=== PATIENT | male | born 1975 | race Caucasian/White ===

== ENCOUNTER 2018-10-16 15:43 | Inpatient (IN) | payer OTHER ==
[2018-10-16 20:58] VITALS: BMI 28.2
--- NOTE | 2018-10-16 22:32 | HP ---
COWS - Scale Resting Pulse: 4= [place] > 121 Sweatin=Flushed/Facial Moisture Restless Observation: 1= Difficult to Sit Still Pupil Size: 0= Normal to Room Light Bone or Joint Aches: 2= Severe Diffuse Aches Runny Nose/ Eye Tearin= Runny Nose/Eyes GI Upset > 30mins: 1= Stomach Cramp Tremor Observation: 2= Slight Tremor Visible Yawning Observation: 1= 1-2x During Session Anxiety or Irritability: 2=Irritable/Anxious Goose Flesh Skin: 3=Piloerection COWS Score: 20 CIWA Score Nausea/Vomitin Muscle Tremors: 3 Anxiety: 3 Agitation: 3 Paroxysmal Sweats: 2 Orientation: 1-Uncertain about Date Tacttile Disturbances: 0-None Auditory Disturbances: 0-None Visual Disturbances: 0-None Headache: 4-Moderately Severe CIWA-Ar Total Score: 19 - Admission Criteria OASAS Guidelines: Admission for Medically Managed Detox: Requires at least one of the followin. CIWA greater than 12 2. Seizures within the past 24 hours 3. Delirium tremens within the past 24 hours 4. Hallucinations within the past 24 hours 5. Acute intervention needed for co occurring medical disorder 6. Acute intervention needed for co occurring psychiatric disorder 7. Severe withdrawal that cannot be handled at a lower level of care (continued vomiting, continued diarrhea, abnormal vital signs) requiring intravenous medication and/or fluids 8. Admission ROS [facility] Chief Complaint: Alcohol, benzo. and heroin withdrawal symptoms Allergies/Adverse Reactions: Allergies Allergy/AdvReac Type Severity Reaction Status Date / Time No Known Allergies Allergy Verified 10/16/18 22:31 History of Present Illness: 43 years old male with a history of benzo., heroin and alcohol dependence is seeking admission to detox. Patient has been in previous detox and reports 8 years of sobriety. He has medical history of lyme disease, seizures, GERD and depression. He denies suicidal ideation at this time. Exam Limitations: No Limitations - Ebola screening Have you traveled outside of the country in the last 21 days: No (N) Have you had contact with anyone from an Ebola affected area: No Do you have a fever: No - Review of Systems Constitutional: Chills, Loss of Appetite, Malaise, Changes in sleep, Weakness EENT: reports: Sinus Pressure Respiratory: reports: No Symptoms reported Cardiac: reports: No Symptoms Reported GI: reports: Poor Appetite, Poor Fluid Intake, Abdominal cramping : reports: No Symptoms Reported Musculoskeletal: reports: Back Pain Integumentary: reports: Dryness, Flushing Neuro: reports: Tremors Endocrine: reports: No Symptoms Reported Hematology: reports: No Symptoms Reported Psychiatric: reports: Anxious, Depressed Other Systems: Reviewed and Negative Patient History - Patient Medical History Hx Anemia: No Hx Asthma: No Hx Chronic Obstructive Pulmonary Disease (COPD): No Hx Cancer: No Hx Cardiac Disorders: No Hx Congestive Heart Failure: No Hx Hypertension: No Hx Hypercholesterolemia: No Hx Pacemaker: No HX Cerebrovascular Accident: No Hx Seizures: Yes (08/21/14 WITNESS BY HIS FRIENDS) Hx Dementia: No Hx Diabetes: No Hx Gastrointestinal Disorders: Yes (PT HAS SEVERE THRUSH.) Hx Liver Disease: No Hx Genitourinary Disorders: No Hx Sexually Transmitted Disorders: No Hx Renal Disease (ESRD): No Hx Thyroid Disease: No Hx Human Immunodeficiency Virus (HIV): No Hx Hepatitis C: No Hx Depression: Yes (WELLBUTRIN) Hx Suicide Attempt: No Hx Schizophrenia: No - Patient Surgical History Past Surgical History: Yes Hx Neurologic Surgery: No Hx Cataract Extraction: No Hx Cardiac Surgery: No Hx Lung Surgery: No Hx Breast Surgery: No Hx Breast Biopsy: No Hx Abdominal Surgery: No Hx Appendectomy: Yes Hx Genitourinary Surgery: No Hx Section: No Hx Orthopedic Surgery: No Hx Hysterectomy: No Other Surgical History: FRONTAL SINUS SX Anesthesia Reaction: No - PPD History Previous Implant?: Yes Documented Results: Positive w/proof Implanted On Prior [facility] Admission?: Yes Date: 08/26/14 PPD to be Administered?: Yes - Reproductive History Patient is a Female of Child Bearing Age (11 -55 yrs old): No (male) - Smoking Cessation Smoking history: Current every day smoker Have you smoked in the past 12 months: Yes Aproximately how many cigarettes per day: 5 Hx Chewing Tobacco Use: No Initiated information on smoking cessation: Yes 'Breaking Loose' booklet given: 10/16/18 - Substance & Tx. History Hx Alcohol Use: Yes Hx Substance Use: Yes Substance Use Type: Alcohol, Opiates Hx Substance Use Treatment: Yes ([facility]) - Substances abused Heroin Substance route: Injection Frequency: Daily Amount used: 3 TO 6 BAGS/DAY Age of first use: 36 Date of last use: 10/15/18 Alprazolam (Xanax) Substance route: Oral Frequency: Daily Amount used: 6 OF 2 MG Age of first use: 19 Date of last use: 10/15/18 Other Other (specify): ST.METHADONE Substance route: Oral Frequency: 1-3 times last 30 days Amount used: 6 OF 10 MG Age of first use: 41 Date of last use: 10/14/18 Alcohol Frequency: Daily Amount used: BEER 6-12 oz, [place] 2 BOTTLES Age of first use: 41 Date of last use: 10/16/18 Family Disease History - Family Disease History Family Disease History: Heart Disease: Father (ALCOHOLIC), Other: Father, Mother (raynauds and lupus) Admission Physical Exam S - Vital Signs Vital Signs: Vital Signs - 24 hr 10/16/18 20:47 Temperature 97.9 F Pulse Rate 123 H Respiratory 19 Rate Blood Pressure 156/100 - Physical General Appearance: Yes: Moderate Distress, Severe Distress, Tremorous, Irritable, Sweating, Anxious HEENTM: Yes: Normal ENT Inspection, Normal Voice, KYM Respiratory: Yes: Lungs Clear, Normal Breath Sounds, No Respiratory Distress Neck: Yes: Supple Breast: Yes: Breast Exam Deferred Cardiology: Yes: Tachycardia Genitourinary: Yes: Within Normal Limits Back: Yes: Normal Inspection Musculoskeletal: Yes: Within Normal Limits Extremities: Yes: Tremors 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, Alert, Normal Mood/Affect Integumentary: Yes: Warm Lymphatic: Yes: Within Normal Limits - Diagnostic (1) Opioid dependence with withdrawal Current Visit: Yes Status: Chronic (2) Alcohol dependence with uncomplicated withdrawal Current Visit: Yes Status: Chronic (3) Benzodiazepine dependence Current Visit: Yes Status: Chronic (4) Geographical tongue Current Visit: No Status: Chronic (5) Nicotine dependence Current Visit: Yes Status: Acute (6) MDD (major depressive disorder), recurrent episode Current Visit: Yes Status: Chronic Qualifiers: Major depression episode severity: unspecified Qualified Code(s): F33.9 - Major depressive disorder, recurrent, unspecified (7) Lyme disease Current Visit: No Status: Chronic (8) Seizures Current Visit: Yes Status: Chronic (9) GERD (gastroesophageal reflux disease) Current Visit: Yes Status: Chronic Qualifiers: Esophagitis presence: without esophagitis Qualified Code(s): K21.9 - Gastro -esophageal reflux disease without esophagitis (10) Depression Current Visit: Yes Status: Chronic Qualifiers: Depression Type: major depressive disorder Cleared for Admission [facility] - Detox or Rehab [facility] Level of Care: Medically Managed Detox Regimen/Protocol: Methadone/Valium Breathalyzer - Breathalyzer Breathalyzer: 0 Urine Drug Screen - Test Device Lot number: [id number] Expiration date: 09/19/19 - Control Is test valid?: Yes - Results Drug screen NEGATIVE: No Urine drug screen results: MET-Methamphetamine, BZO-Benzodiazepines Inpatient Rehab Admission - Rehab Decision to Admit Inpatient rehab admission?: No
[2018-10-16] MEDS ORDERED: MAG HYDROX/AL HYDROX/SIMETH 30 ML UNIT-DOSE CUP PO PRN (22:53)
[2018-10-16] MEDS ORDERED: MENTHOL/PHENOL 1 EACH UD MM PRN (22:53)
[2018-10-16] MEDS ORDERED: NICOTINE POLACRILEX 2 MG GUM BUC PRN (22:53)
[2018-10-16] MEDS ORDERED: BISMUTH SUBSALICYLATE 524 MG/30 ML UD PO PRN (22:53)
[2018-10-16] MEDS ORDERED: IBUPROFEN 400 MG TABLET (FP) PO PRN (22:53)
[2018-10-16] MEDS ORDERED: ACETAMINOPHEN 325 MG TABLET (FP) PO PRN ×2 (22:53)
[2018-10-16] MEDS ORDERED: MAGNESIUM HYDROX 2400MG/30ML ORAL SUSPENSION 30 ML CUP PO PRN (22:53)
[2018-10-16] MEDS ORDERED: MAGNESIUM CITRATE 300 ML BOTTLE PO PRN (22:53)
[2018-10-16] MEDS ORDERED: METHADONE HCL 10 MG TABLET (FOR DETOX USE ONLY) PO ONE (23:00)
[2018-10-16] MEDS: diazePAM 5 MG TABLET PO SCH (23:51)
[2018-10-16] MEDS: cloNIDine HCL 0.1 MG TABLET PO PRN (23:51)
[2018-10-17] MEDS: METHOCARBAMOL 500 MG TABLET PO PRN ×3 (00:41→20:26)
[2018-10-17] MEDS: hydrOXYzine PAMOATE 25 MG CAPSULE (FP) PO PRN ×2 (00:41→13:33)
[2018-10-17] MEDS: MELATONIN 5 MG TABLETS PO PRN ×2 (00:41→22:42)
[2018-10-17] MEDS: diazePAM 5 MG TABLET PO PRN ×4 (02:10→20:25)
[2018-10-17] MEDS: diazePAM 5 MG TABLET PO SCH ×3 (06:04→22:42)
[2018-10-17] MEDS ORDERED: METHADONE HCL 10 MG TABLET (FOR DETOX USE ONLY) PO ONE (10:00)
[2018-10-17 10:07] LABS: HEMATOCRIT 38.2 % (35.4-49); HEMOGLOBIN 12.8 GM/dL (11.7-16.9); MCHC 33.5 g/dl (32.0-35.9); MEAN CELL VOLUME 83.5 fl (80-96); MEAN PLT VOLUME 8.9 fl (7.5-11.1); PLATELET COUNT 256 K/MM3 (134-434); RBC 4.58 M/mm3 (4.00-5.60); RDW 14.4 % (11.9-15.9)
[2018-10-17] MEDS: PRENATAL VITAMINS W/ FOLIC ACID TABLET (FP) PO SCH (10:14)
[2018-10-17] MEDS: NICOTINE 14 MG/24 HOURS TOPICAL PATCH TD SCH (10:15)
[2018-10-17 10:32] LABS: ALBUMIN 3.1 g/dl (3.4-5.0); BILIRUBIN,TOTAL 0.3 mg/dL (0.2-1); CALCIUM 8.9 mg/dL (8.5-10.1); TOT PROT 6.6 g/dl (6.4-8.2)
--- NOTE | 2018-10-17 11:54 | PN ---
[facility] CIWA - CIWA Score Nausea/Vomitin-Mild Nausea/No Vomiting Muscle Tremors: 4-Moderate,w/Arms Extend Anxiety: 2 Agitation: 3 Paroxysmal Sweats: 1-Minimal Palms Moist Orientation: 2-Disoriented Date<2 days Tacttile Disturbances: 1-Very Mild Itch/Numbness Auditory Disturbances: 0-None Visual Disturbances: 0-None Headache: 1-Very Mild CIWA-Ar Total Score: 15 [facility] COWS - Scale Resting Pulse: 1= [place] 81-100 Sweatin= Chills/Flushing Restless Observation: 0= Sits Still Pupil Size: 0= Normal to Room Light Bone or Joint Aches: 1= Mild Discomfort Runny Nose/ Eye Tearin= Nasal Congestion GI Upset > 30mins: 2= Nausea/Diarrhea Tremor Observation of Outstretched Hands: 2= Slight Tremor Visible Yawning Observation: 1= 1-2x During Session Anxiety or Irritability: 2=Irritable/Anxious Goose Flesh Skin: 3=Piloerection COWS Score: 14 [facility] Progress Note (SOAP) Subjective: doing well with valium and methadone detox regimen "I can sleep now" resting on bed low energy tolerate food and fluid well Objective: 10/17/18 11:54 Vital Signs Temperature 98.2 F 10/17/18 09:10 Pulse Rate 93 H 10/17/18 09:10 Respiratory Rate 20 10/17/18 09:10 Blood Pressure 126/75 10/17/18 09:10 O2 Sat by Pulse Oximetry (%) Laboratory Last Values WBC 5.0 K/mm3 (4.0-10.0) 10/17/18 07:00 RBC 4.58 M/mm3 (4.00-5.60) 10/17/18 07:00 Hgb 12.8 GM/dL (11.7-16.9) 10/17/18 07:00 Hct 38.2 % (35.4-49) 10/17/18 07:00 MCV 83.5 fl (80-96) 10/17/18 07:00 MCH 28.0 pg (25.7-33.7) 10/17/18 07:00 MCHC 33.5 g/dl (32.0-35.9) 10/17/18 07:00 RDW 14.4 % (11.9-15.9) D 10/17/18 07:00 Plt Count 256 K/MM3 (134-434) 10/17/18 07:00 MPV 8.9 fl (7.5-11.1) 10/17/18 07:00 Sodium 139 mmol/L (136-145) 10/17/18 07:00 Potassium 4.0 mmol/L (3.5-5.1) 10/17/18 07:00 Chloride 102 mmol/L (98-107) 10/17/18 07:00 Carbon Dioxide 30 mmol/L (21-32) 10/17/18 07:00 Anion Gap 6 MMOL/L (8-16) L 10/17/18 07:00 BUN 15 mg/dL (7-18) 10/17/18 07:00 Creatinine 1.0 mg/dL (0.55-1.3) 10/17/18 07:00 Est GFR (CKD-EPI)AfAm 107.12 10/17/18 07:00 Est GFR (CKD-EPI)NonAf 92.42 10/17/18 07:00 Random Glucose 94 mg/dL (74-106) 10/17/18 07:00 Calcium 8.9 mg/dL (8.5-10.1) 10/17/18 07:00 Total Bilirubin 0.3 mg/dL (0.2-1) 10/17/18 07:00 AST 13 U/L (15-37) L 10/17/18 07:00 ALT 26 U/L (13-61) 10/17/18 07:00 Alkaline Phosphatase 69 U/L (45-117) 10/17/18 07:00 Total Protein 6.6 g/dl (6.4-8.2) 10/17/18 07:00 Albumin 3.1 g/dl (3.4-5.0) L 10/17/18 07:00 lab noted Assessment: 10/17/18 11:55 withdrawal sx Plan: continue detox
[2018-10-17 14:39] LABS: RPR REACTIVE 1:1 (NONREACTIVE)
--- NOTE | 2018-10-17 17:19 | EKG ---
Test Reason : Blood Pressure : / mmHG Vent. Rate : 094 BPM Atrial Rate : 094 BPM P-R Int : 152 ms QRS Dur : 084 ms QT Int : 370 ms P-R-T Axes : 056 -22 032 degrees QTc Int : 462 ms NORMAL SINUS RHYTHM NORMAL ECG WHEN COMPARED WITH ECG OF 21-AUG-2014 22:39, NO SIGNIFICANT CHANGE WAS FOUND Confirmed by CHET DELGADO MD ([id number]) on 10/17/2018 5:18:55 PM Referred By: ANTHONY GOODSON Confirmed By:CHET DELGADO MD
[2018-10-17] MEDS: THIAMINE HCL 100 MG TABLET (FP) PO SCH (22:42)
[2018-10-18] MEDS: diazePAM 5 MG TABLET PO PRN ×3 (03:17→20:22)
[2018-10-18] MEDS: cloNIDine HCL 0.1 MG TABLET PO PRN ×2 (05:48→23:36)
[2018-10-18] MEDS ORDERED: METHADONE HCL 10 MG TABLET (FOR DETOX USE ONLY) PO ONE ×3 (10:00)
[2018-10-18] MEDS ORDERED: METHADONE HCL 5 MG TABLET (FOR DETOX USE ONLY) PO ONE (10:00)
[2018-10-18] MEDS: NICOTINE 14 MG/24 HOURS TOPICAL PATCH TD SCH (10:21)
[2018-10-18] MEDS: diazePAM 5 MG TABLET PO SCH ×2 (10:21→22:16)
[2018-10-18] MEDS: PRENATAL VITAMINS W/ FOLIC ACID TABLET (FP) PO SCH (10:21)
--- NOTE | 2018-10-18 13:05 | CONSULT ---
[facility] Psychiatric Consult - Data Date of interview: 10/18/18 Admission source: [facility] Identifying data: Patient is a 43 year old single male, without children, unemployed, homeless, and is supported by [employer] assistance. This is one of multiple admissions for patient. Patient admitted to for alcohol, opioid, and benzodiazepine dependence. Substance Abuse History: Smoking Cessation. Smoking history: Current every day smoker. Have you smoked in the past 12 months: Yes. Aproximately how many cigarettes per day: 5. Hx Chewing Tobacco Use: No. Initiated information on smoking cessation: Yes. 'Breaking Loose' booklet given: 10/16/18. - Substance & Tx. History. Hx Alcohol Use: Yes. Hx Substance Use: Yes. Substance Use Type : Alcohol, Opiates. Hx Substance Use Treatment: Yes ([facility]). - Substances abused. Heroin. Substance route: Injection. Frequency: Daily. Amount used : 3 TO 6 BAGS/DAY. Age of first use: 36. Date of last use: 10/15/18. Alprazolam (Xanax). Substance route: Oral. Frequency: Daily. Amount used: 6 OF 2 MG. Age of first use: 19. Date of last use: 10/15/18. Other. Other ( specify): ST.METHADONE. Substance route: Oral. Frequency: 1-3 times last 30 days. Amount used: 6 OF 10 MG. Age of first use: 41. Date of last use: . Alcohol. Frequency: Daily. Amount used: BEER 6-12 oz, [place] 2 BOTTLES. Age of first use: 41. Date of last use: 10/16/18 Medical History: Thrush, Seizures (witness by friends), Frontal sinus surgery Psychiatric History: Patient denies h/o psychiatric hospitalization and suicide attempt. Mr. Paris reports only receiving psychiatric care while in detox/ rehab settings. He reports past trials of gabapentin, seroquel and wellbutrin although reports medication noncompliance and is not under psychiatric care. At present, patient reports ongoing anxiety and difficulty sleeping. Physical/Sexual Abuse/Trauma History: denies. Mental Status Exam - Mental Status Exam Alert and Oriented to: Time, Place, Person Cognitive Function: Good Patient Appearance: Well Groomed Mood: Withdrawn Affect: Mood Congruent Patient Behavior: Cooperative Voice Loudness: Moderately Soft/Quiet Thought Process: Goal Oriented Thought Disorder: Not Present Hallucinations: Denies Suicidal Ideation: Denies Homicidal Ideation: Denies Insight/Judgement: Poor Sleep: Poorly Appetite: Fair Muscle strength/Tone: Normal Gait/Station: Normal Psychiatric Findings - Problem List (Mobile 1, 2,3) (1) Alcohol dependence with uncomplicated withdrawal Current Visit: Yes Status: Acute (2) Benzodiazepine dependence Current Visit: Yes Status: Chronic (3) Opioid dependence with withdrawal Current Visit: Yes Status: Acute (4) Substance induced mood disorder Current Visit: Yes Status: Acute (5) Substance-induced sleep disorder Current Visit: Yes Status: Acute - Initial Treatment Plan Initial Treatment Plan: Psychoeducation provided. Detoxification in progress. Will order Gabapentin 300mg BID + Seroquel 50mg HS. Benefits and side effects discussed. Verbal consent given.
--- NOTE | 2018-10-18 13:43 | PN ---
[facility] CIWA - CIWA Score Nausea/Vomitin-Mild Nausea/No Vomiting Muscle Tremors: 3 Anxiety: 2 Agitation: 2 Paroxysmal Sweats: 1-Minimal Palms Moist Orientation: 1-Uncertain about Date Tacttile Disturbances: 0-None Auditory Disturbances: 0-None Visual Disturbances: 0-None Headache: 1-Very Mild CIWA-Ar Total Score: 11 [facility] Progress Note (SOAP) Subjective: body ache tremor low energy restlessness muscle cramping willing to discuss aftercare with staff consider medication assisted maintenance treatment program Objective: 10/18/18 13:45 Vital Signs Temperature 97.0 F L 10/18/18 13:39 Pulse Rate 88 10/18/18 13:39 Respiratory Rate 20 10/18/18 13:39 Blood Pressure 114/62 10/18/18 13:39 O2 Sat by Pulse Oximetry (%) Laboratory Last Values WBC 5.0 K/mm3 (4.0-10.0) 10/17/18 07:00 RBC 4.58 M/mm3 (4.00-5.60) 10/17/18 07:00 Hgb 12.8 GM/dL (11.7-16.9) 10/17/18 07:00 Hct 38.2 % (35.4-49) 10/17/18 07:00 MCV 83.5 fl (80-96) 10/17/18 07:00 MCH 28.0 pg (25.7-33.7) 10/17/18 07:00 MCHC 33.5 g/dl (32.0-35.9) 10/17/18 07:00 RDW 14.4 % (11.9-15.9) D 10/17/18 07:00 Plt Count 256 K/MM3 (134-434) 10/17/18 07:00 MPV 8.9 fl (7.5-11.1) 10/17/18 07:00 Sodium 139 mmol/L (136-145) 10/17/18 07:00 Potassium 4.0 mmol/L (3.5-5.1) 10/17/18 07:00 Chloride 102 mmol/L (98-107) 10/17/18 07:00 Carbon Dioxide 30 mmol/L (21-32) 10/17/18 07:00 Anion Gap 6 MMOL/L (8-16) L 10/17/18 07:00 BUN 15 mg/dL (7-18) 10/17/18 07:00 Creatinine 1.0 mg/dL (0.55-1.3) 10/17/18 07:00 Est GFR (CKD-EPI)AfAm 107.12 10/17/18 07:00 Est GFR (CKD-EPI)NonAf 92.42 10/17/18 07:00 Random Glucose 94 mg/dL (74-106) 10/17/18 07:00 Calcium 8.9 mg/dL (8.5-10.1) 10/17/18 07:00 Total Bilirubin 0.3 mg/dL (0.2-1) 10/17/18 07:00 AST 13 U/L (15-37) L 10/17/18 07:00 ALT 26 U/L (13-61) 10/17/18 07:00 Alkaline Phosphatase 69 U/L (45-117) 10/17/18 07:00 Total Protein 6.6 g/dl (6.4-8.2) 10/17/18 07:00 Albumin 3.1 g/dl (3.4-5.0) L 10/17/18 07:00 RPR Titer Reactive 1:1 (NONREACTIVE) H D 10/17/18 07:00 lab noted Assessment: 10/18/18 13:45 alcohol benzo and opiate withdrawal sx Plan: continue detox
[2018-10-18 15:34] LABS: TREPONEMA ANTIBODY REACTIVE (NONREACTIVE)
[2018-10-18] MEDS: METHOCARBAMOL 500 MG TABLET PO PRN (20:24)
[2018-10-18] MEDS ORDERED: QUEtiapine FUMARATE 50 MG TABLET PO ONE (22:00)
[2018-10-18] MEDS: GABAPENTIN 300 MG CAPSULE (FP) PO SCH (22:16)
[2018-10-18] MEDS: QUEtiapine FUMARATE 50 MG TABLET PO SCH (22:16)
[2018-10-18] MEDS: THIAMINE HCL 100 MG TABLET (FP) PO SCH (22:16)
[2018-10-18] MEDS: hydrOXYzine PAMOATE 25 MG CAPSULE (FP) PO PRN (23:36)
[2018-10-19] MEDS ORDERED: diazePAM 5 MG TABLET PO SCH (06:00)
[2018-10-19] MEDS ORDERED: METHADONE HCL 10 MG TABLET (FOR DETOX USE ONLY) PO ONE ×2 (10:00)
[2018-10-19] MEDS: GABAPENTIN 300 MG CAPSULE (FP) PO SCH ×2 (10:17→22:15)
[2018-10-19] MEDS: PRENATAL VITAMINS W/ FOLIC ACID TABLET (FP) PO SCH (10:17)
[2018-10-19] MEDS: NICOTINE 14 MG/24 HOURS TOPICAL PATCH TD SCH (10:17)
[2018-10-19] MEDS: diazePAM 5 MG TABLET PO PRN ×3 (10:17→19:21)
--- NOTE | 2018-10-19 14:33 | PN ---
S CIWA - CIWA Score Nausea/Vomitin Muscle Tremors: 2 Anxiety: 2 Agitation: 1-Slight > Activity Paroxysmal Sweats: No Perspiration Orientation: 0-Oriented Tacttile Disturbances: 1-Very Mild Itch/Numbness Auditory Disturbances: 0-None Visual Disturbances: 0-None Headache: 1-Very Mild CIWA-Ar Total Score: 9 [facility] COWS - Scale Resting Pulse: 0= [place] 80 or Below Sweatin= Chills/Flushing Restless Observation: 1= Difficult to Sit Still Pupil Size: 1= Pupils >than Normal Bone or Joint Aches: 1= Mild Discomfort Runny Nose/ Eye Tearin= Nasal Congestion GI Upset > 30mins: 1= Stomach Cramp Tremor Observation of Outstretched Hands: 1= Tremor [place], Not Seen Yawning Observation: 0= None Anxiety or Irritability: 1=Feels Anxious/Irritable Goose Flesh Skin: 0=Smooth Skin COWS Score: 8 [facility] Progress Note (SOAP) Subjective: alert,interrupted sleep,anxious,pain in the body Objective: 10/19/18 14:32 Vital Signs Temperature 98.6 F 10/19/18 13:00 Pulse Rate 96 H 10/19/18 13:00 Respiratory Rate 20 10/19/18 13:00 Blood Pressure 136/92 10/19/18 13:00 O2 Sat by Pulse Oximetry (%) Assessment: 10/19/18 14:32 withdrawal symptom Plan: continue detox,discharge in am
[2018-10-19] MEDS: METHOCARBAMOL 500 MG TABLET PO PRN (19:21)
[2018-10-19] MEDS: THIAMINE HCL 100 MG TABLET (FP) PO SCH (22:15)
[2018-10-19] MEDS: hydrOXYzine PAMOATE 25 MG CAPSULE (FP) PO PRN (22:15)
[2018-10-19] MEDS: QUEtiapine FUMARATE 50 MG TABLET PO SCH (22:15)
[2018-10-19] MEDS: MELATONIN 5 MG TABLETS PO PRN (22:15)
[2018-10-20] MEDS ORDERED: METHADONE HCL 5 MG TABLET (FOR DETOX USE ONLY) PO ONE (06:00)
[2018-10-20] MEDS: GABAPENTIN 300 MG CAPSULE (FP) PO SCH ×2 (09:48→22:22)
[2018-10-20] MEDS: hydrOXYzine PAMOATE 25 MG CAPSULE (FP) PO PRN (09:48)
[2018-10-20] MEDS: PRENATAL VITAMINS W/ FOLIC ACID TABLET (FP) PO SCH (09:48)
[2018-10-20] MEDS: NICOTINE 14 MG/24 HOURS TOPICAL PATCH TD SCH (09:49)
[2018-10-20] MEDS ORDERED: METHADONE HCL 10 MG TABLET (FOR DETOX USE ONLY) PO ONE (10:00)
[2018-10-20] MEDS: METHOCARBAMOL 500 MG TABLET PO PRN (11:52)
[2018-10-20] MEDS ORDERED: cloNIDine HCL 0.1 MG TABLET PO ONE (17:05)
--- NOTE | 2018-10-20 17:08 | PN ---
[facility] CIWA - CIWA Score Nausea/Vomitin-No Nausea/No Vomiting Muscle Tremors: None Anxiety: 4-Mod. Anxious/Guarded Agitation: 2 Paroxysmal Sweats: No Perspiration Orientation: 0-Oriented Tacttile Disturbances: 1-Very Mild Itch/Numbness Auditory Disturbances: 0-None Visual Disturbances: 1-Very Mild Sensitivity Headache: 0-None Present CIWA-Ar Total Score: 8 S COWS - Scale Resting Pulse: 1= [place] 81-100 Sweatin= Chills/Flushing Restless Observation: 1= Difficult to Sit Still Pupil Size: 0= Normal to Room Light Bone or Joint Aches: 2= Severe Diffuse Aches Runny Nose/ Eye Tearin= None GI Upset > 30mins: 0= None Tremor Observation of Outstretched Hands: 0= None Yawning Observation: 1= 1-2x During Session Anxiety or Irritability: 2=Irritable/Anxious Goose Flesh Skin: 0=Smooth Skin COWS Score: 8 S Progress Note (SOAP) Subjective: Anxious, Interrupted sleep, Body Aches. Objective: PATIENT A & O X 3, OBSERVED AMBULATING ON UNIT UNASSISTED. IN NO ACUTE DISTRESS. 10/20/18 17:07 Vital Signs Temperature 97.6 F 10/20/18 13:51 Pulse Rate 94 H 10/20/18 13:51 Respiratory Rate 20 10/20/18 13:51 Blood Pressure 142/94 10/20/18 13:51 O2 Sat by Pulse Oximetry (%) Laboratory Tests 10/17/18 10/17/18 10/17/18 07:00 07:00 07:00 WBC 5.0 RBC 4.58 Hgb 12.8 Hct 38.2 MCV 83.5 MCH 28.0 MCHC 33.5 RDW 14.4 D Plt Count 256 MPV 8.9 Sodium 139 Potassium 4.0 Chloride 102 Carbon Dioxide 30 Anion Gap 6 L BUN 15 Creatinine 1.0 Est GFR (CKD-EPI)AfAm 107.12 Est GFR (CKD-EPI)NonAf 92.42 Random Glucose 94 Calcium 8.9 Total Bilirubin 0.3 AST 13 L ALT 26 Alkaline Phosphatase 69 Total Protein 6.6 Albumin 3.1 L RPR Titer Reactive 1:1 H D T.pallidum Ab (MHA) Reactive LABS NOTED. RPR RESULTS: REACTIVE 1:1; MHATP: REACTIVE. PATIENT REPORTS THAT HE COMPLETED A FULL COURSE OF TREATMENT FOR SYPHILIS IN THE PAST. 10/20/18 17:26 Assessment: 10/20/18 17:07 WITHDRAWAL SYMPTOMS. REACTIVE RPR RESULT. 10/20/18 17:27 Plan: CONTINUE DETOX. CLONIDINE, 0.1 MG PO X 1 ORDERED FOR WITHDRAWAL SYMPTOMS. PATIENT SCHEDULED FOR D/C TOMORROW AM.
[2018-10-20] MEDS: QUEtiapine FUMARATE 50 MG TABLET PO SCH (22:22)
[2018-10-20] MEDS: THIAMINE HCL 100 MG TABLET (FP) PO SCH (22:22)
[2018-10-21] MEDS ORDERED: METHADONE HCL 5 MG TABLET (FOR DETOX USE ONLY) PO ONE (06:00)
[2018-10-21] MEDS: NICOTINE 14 MG/24 HOURS TOPICAL PATCH TD SCH (10:34)
[2018-10-21] MEDS: GABAPENTIN 300 MG CAPSULE (FP) PO SCH (10:34)
[2018-10-21] MEDS: PRENATAL VITAMINS W/ FOLIC ACID TABLET (FP) PO SCH (10:34)
--- NOTE | 2018-10-21 11:22 | PN ---
[facility] CIWA - CIWA Score Nausea/Vomitin-No Nausea/No Vomiting Muscle Tremors: 1-None Visible, but [place] Anxiety: 1-Mildly Anxious Agitation: 0-Normal Activity Paroxysmal Sweats: No Perspiration Orientation: 0-Oriented Tacttile Disturbances: 0-None Auditory Disturbances: 0-None Visual Disturbances: 0-None Headache: 0-None Present CIWA-Ar Total Score: 2 [facility] COWS - Scale Resting Pulse: 1= [place] 81-100 Sweatin= No chills or Flushing Restless Observation: 0= Sits Still Pupil Size: 0= Normal to Room Light Bone or Joint Aches: 0= None Runny Nose/ Eye Tearin= None GI Upset > 30mins: 0= None Tremor Observation of Outstretched Hands: 1= Tremor [place], Not Seen Yawning Observation: 0= None Anxiety or Irritability: 1=Feels Anxious/Irritable Goose Flesh Skin: 0=Smooth Skin COWS Score: 3 [facility] Progress Note (SOAP) Subjective: No complains offered Objective: 10/21/18 11:20 A & O x 3 Anxious about aftercare rehab Vital Signs Temperature 98 F 10/21/18 09:50 Pulse Rate 89 10/21/18 09:50 Respiratory Rate 16 10/21/18 09:50 Blood Pressure 131/86 10/21/18 09:50 O2 Sat by Pulse Oximetry (%) No acute distress noted Gait steady Declined narcan, states he has some Assessment: 10/21/18 11:22 detox completed Plan: For discharge
--- NOTE | 2018-10-21 11:26 | DS ---
[facility] Detox Discharge Summary Admission Date: 10/16/18 Discharge Date: 10/21/18 - History Additional Comments: pt for discharge today A & O x 3 and in no acute distress Denies any complaint, Denies home meds, declined narcan offered States he intends to do aftercare by doing maintenance methadone at the methadone program at [facility], [facility] or [facility]. - Physical Exam Results Vital Signs: Vital Signs Temperature 98 F 10/21/18 09:50 Pulse Rate 89 10/21/18 09:50 Respiratory Rate 16 10/21/18 09:50 Blood Pressure 131/86 10/21/18 09:50 O2 Sat by Pulse Oximetry (%) Pertinent Admission Physical Exam Findings: withdrawal sx - Treatment Hospital Course: Detox Protocol Followed, Detoxed Safely, Responded well, Discharged Condition Good Patient has Accepted a Rehab Referral to: see notes above - Medication Discharge Medications: Ambulatory Orders Quetiapine Fumarate [Seroquel -] 50 mg PO HS 08/24/14 Quetiapine Fumarate [Seroquel -] 50 mg PO HS 10/16/18 - AMA Did Patient Leave Against Medical Advice: No
[2018-10-21 14:11] VITALS: BP 127/82; PULSE 81; TEMP 98.7
== END 2018-10-21 14:53 | disposition home or self-care (01) | DRG 773 ==
LOC: YASAS 15:43 → Y3N 23:09
PROVIDERS: ADMIT Surgery; ATTEND Surgery
PROC: HZ2ZZZZ Detoxification Services for Substance Abuse Treatment (ICD-10-PCS; principal; 2018-10-16)
DX: F10.230 Alcohol dependence with withdrawal, uncomplicated (principal); F11.23 Opioid dependence with withdrawal; F13.230 Sedative, hypnotic or anxiolytic dependence with withdrawal, uncomplicated; F19.24 Other psychoactive substance dependence with psychoactive substance-induced mood disorder; F19.282 Other psychoactive substance dependence with psychoactive substance-induced sleep disorder; F32.9 Major depressive disorder, single episode, unspecified; B37.89 Other sites of candidiasis; Z86.69 Personal history of other diseases of the nervous system and sense organs
CPT/HCPCS: 36415; 80053; 85027; 86593; 86780; 93005; 93010; J0735

== ENCOUNTER 2019-07-22 20:40 | Inpatient (IN) | payer OTHER ==
--- NOTE | 2019-07-22 21:01 | BHS.RME ---
Substance Use & Tx History - Last Treatment Where was last treatment: Detox COWS - Scale Resting Pulse: 1= [place] 81-100 Sweatin=Flushed/Facial Moisture Restless Observation: 1= Difficult to Sit Still Pupil Size: 1= Pupils >than Normal Bone or Joint Aches: 4=Acute Joint/Muscle Pain Runny Nose/ Eye Tearin= Runny Nose/Eyes GI Upset > 30mins: 1= Stomach Cramp Tremor Observation: 4= Gross Tremor/Twitching Yawning Observation: 0= None Anxiety or Irritability: 2=Irritable/Anxious Goose Flesh Skin: 0=Smooth Skin COWS Score: 18 CIWA Nausea/Vomitin Muscle Tremors: 4-Moderate,w/Arms Extend Anxiety: 3 Agitation: 3 Paroxysmal Sweats: 2 Orientation: 0-Oriented Tacttile Disturbances: 0-None Auditory Disturbances: 1-Very Mild Visual Disturbances: 0-None Headache: 2-Mild CIWA-Ar Total Score: 17
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
[2019-07-22] MEDS ORDERED: MAG HYDROX/AL HYDROX/SIMETH 30 ML UNIT-DOSE CUP PO PRN (22:00)
[2019-07-22] MEDS ORDERED: BISMUTH SUBSALICYLATE 524 MG/30 ML UD PO PRN (22:00)
[2019-07-22] MEDS ORDERED: ONDANSETRON *ODT* 4 MG TABLET SL ONE (22:00)
[2019-07-22] MEDS ORDERED: ACETAMINOPHEN 325 MG TABLET (FP) PO PRN ×2 (22:00)
[2019-07-22] MEDS ORDERED: MAGNESIUM HYDROX 2400MG/30ML ORAL SUSPENSION 30 ML CUP PO PRN (22:00)
[2019-07-22] MEDS ORDERED: MENTHOL/PHENOL 1 EACH UD MM PRN (22:00)
[2019-07-22] MEDS ORDERED: MAGNESIUM CITRATE 300 ML BOTTLE PO PRN (22:00)
[2019-07-22] MEDS ORDERED: guaiFENesin 200 MG/10 ML 10 ML UNIT-DOSE CUPS PO PRN (22:00)
[2019-07-22] MEDS ORDERED: cloNIDine HCL 0.1 MG TABLET PO ONE (22:09)
[2019-07-22 22:30] VITALS: BMI 28.2
[2019-07-22] MEDS ORDERED: METHADONE HCL 5 MG TABLET (FOR DETOX USE ONLY) PO ONE (22:35)
[2019-07-22] MEDS: THIAMINE HCL 100 MG TABLET (FP) PO SCH (23:17)
[2019-07-22] MEDS: chlordiazePOXIDE HCL 25 MG CAPSULE PO SCH (23:17)
[2019-07-22] MEDS: MELATONIN 5 MG TABLETS PO SCH (23:17)
[2019-07-22] MEDS ORDERED: QUEtiapine FUMARATE 50 MG TABLET PO ONE (23:45)
[2019-07-23] MEDS: chlordiazePOXIDE HCL 25 MG CAPSULE PO PRN ×3 (01:48→20:32)
[2019-07-23] MEDS: chlordiazePOXIDE HCL 25 MG CAPSULE PO SCH ×4 (05:24→22:17)
[2019-07-23] MEDS: cloNIDine HCL 0.1 MG TABLET PO PRN ×2 (05:29→18:22)
[2019-07-23] MEDS: DOCUSATE SODIUM 100 MG CAPSULE (FP) PO SCH ×3 (05:47→22:16)
[2019-07-23] MEDS ORDERED: METHADONE HCL 5 MG TABLET (FOR DETOX USE ONLY) PO ONE (10:00)
[2019-07-23] MEDS: PRENATAL VITAMINS W/ FOLIC ACID TABLET (FP) PO SCH (10:15)
[2019-07-23] MEDS: IBUPROFEN 400 MG TABLET (FP) PO PRN ×2 (10:15→18:22)
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
[2019-07-23 10:24] LABS: HEMATOCRIT 35.7 % (35.4-49); HEMOGLOBIN 11.9 GM/dL (11.7-16.9); MCH 28.5 pg (25.7-33.7); MCHC 33.2 g/dl (32.0-35.9); MEAN CELL VOLUME 85.7 fl (80-96); MEAN PLT VOLUME 9.4 fl (7.5-11.1); PLATELET COUNT 220 K/MM3 (134-434); RBC 4.17 M/mm3 (4.00-5.60); RDW 14.7 % (11.9-15.9); WHITE BLOOD COUNT 4.4 K/mm3 (4.0-10.0)
[2019-07-23 10:31] LABS: BILIRUBIN,TOTAL 0.5 mg/dL (0.2-1); BLOOD UREA NITROGEN 13.1 mg/dL (7-18); CREATININE 1.2 mg/dL (0.55-1.3); POTASSIUM 4.1 mmol/L (3.5-5.1); TOT PROT 6.1 g/dl (6.4-8.2)
--- NOTE | 2019-07-23 10:35 | EKG ---
Test Reason : Blood Pressure : / mmHG Vent. Rate : 106 BPM Atrial Rate : 106 BPM P-R Int : 180 ms QRS Dur : 082 ms QT Int : 332 ms P-R-T Axes : 030 -17 002 degrees QTc Int : 441 ms SINUS TACHYCARDIA OTHERWISE NORMAL ECG WHEN COMPARED WITH ECG OF 16-OCT-2018 23:12, NO SIGNIFICANT CHANGE WAS FOUND Confirmed by Jhoan Felix MD ([id number]) on 07/23/2019 10:35:18 AM Referred By: Confirmed By:Jhoan Felix MD
[2019-07-23 13:05] LABS: RPR REACTIVE 1:1 (NONREACTIVE)
[2019-07-23 13:07] LABS: TREPONEMA ANTIBODY PREVIOUSLY REACTIVE (NONREACTIVE)
--- NOTE | 2019-07-23 15:18 | PN ---
S CIWA - CIWA Score Nausea/Vomitin-Mild Nausea/No Vomiting Muscle Tremors: 2 Anxiety: 4-Mod. Anxious/Guarded Agitation: 2 Paroxysmal Sweats: 2 Orientation: 0-Oriented Tacttile Disturbances: 0-None Auditory Disturbances: 0-None Visual Disturbances: 2-Mild Sensitivity Headache: 2-Mild CIWA-Ar Total Score: 15 BHS COWS - Scale Resting Pulse: 1= [place] 81-100 Sweatin= Chills/Flushing Restless Observation: 0= Sits Still Pupil Size: 1= Pupils >than Normal Bone or Joint Aches: 1= Mild Discomfort Runny Nose/ Eye Tearin= Nasal Congestion GI Upset > 30mins: 2= Nausea/Diarrhea Tremor Observation of Outstretched Hands: 2= Slight Tremor Visible Yawning Observation: 0= None Anxiety or Irritability: 2=Irritable/Anxious Goose Flesh Skin: 3=Piloerection COWS Score: 14 S Progress Note (SOAP) Subjective: 44 years old male admitted on 07/22/19 for benzo and opiate withdrawal sx management treating with librium and methadone detox regiments feeling tire poor appetite restlessness trouble sleep at night Objective: 07/23/19 15:22 Vital Signs Temperature 97.9 F 07/23/19 12:35 Pulse Rate 89 07/23/19 12:35 Respiratory Rate 18 07/23/19 12:35 Blood Pressure 126/81 07/23/19 12:35 O2 Sat by Pulse Oximetry (%) Laboratory Last Values WBC 4.4 K/mm3 (4.0-10.0) 07/23/19 07:30 RBC 4.17 M/mm3 (4.00-5.60) 07/23/19 07:30 Hgb 11.9 GM/dL (11.7-16.9) 07/23/19 07:30 Hct 35.7 % (35.4-49) 07/23/19 07:30 MCV 85.7 fl (80-96) 07/23/19 07:30 MCH 28.5 pg (25.7-33.7) 07/23/19 07:30 MCHC 33.2 g/dl (32.0-35.9) 07/23/19 07:30 RDW 14.7 % (11.9-15.9) 07/23/19 07:30 Plt Count 220 K/MM3 (134-434) 07/23/19 07:30 MPV 9.4 fl (7.5-11.1) 07/23/19 07:30 Sodium 136 mmol/L (136-145) 07/23/19 07:30 Potassium 4.1 mmol/L (3.5-5.1) 07/23/19 07:30 Chloride 101 mmol/L (98-107) 07/23/19 07:30 Carbon Dioxide 28 mmol/L (21-32) 07/23/19 07:30 Anion Gap 6 MMOL/L (8-16) L 07/23/19 07:30 BUN 13.1 mg/dL (7-18) 07/23/19 07:30 Creatinine 1.2 mg/dL (0.55-1.3) 07/23/19 07:30 Est GFR (CKD-EPI)AfAm 85.32 07/23/19 07:30 Est GFR (CKD-EPI)NonAf 73.62 07/23/19 07:30 Random Glucose 88 mg/dL (74-106) 07/23/19 07:30 Calcium 8.0 mg/dL (8.5-10.1) L 07/23/19 07:30 Total Bilirubin 0.5 mg/dL (0.2-1) 07/23/19 07:30 AST 18 U/L (15-37) 07/23/19 07:30 ALT 21 U/L (13-61) 07/23/19 07:30 Alkaline Phosphatase 75 U/L (45-117) 07/23/19 07:30 Total Protein 6.1 g/dl (6.4-8.2) L 07/23/19 07:30 Albumin 3.0 g/dl (3.4-5.0) L 07/23/19 07:30 RPR Titer Reactive 1:1 (NONREACTIVE) H 07/23/19 07:30 T.pallidum Ab (MHA) Previously reactive (NONREACTIVE) 07/23/19 07:30 lab noted Assessment: 07/23/19 15:23 benzo and opiate withdrawal Plan: librium and methadone regiments
[2019-07-23] MEDS: THIAMINE HCL 100 MG TABLET (FP) PO SCH (22:16)
[2019-07-23] MEDS: QUEtiapine FUMARATE 100 MG TABLET (FP) PO SCH (22:16)
[2019-07-23] MEDS: MELATONIN 5 MG TABLETS PO SCH (22:16)
[2019-07-24] MEDS: chlordiazePOXIDE HCL 25 MG CAPSULE PO PRN ×2 (00:53→19:08)
[2019-07-24] MEDS: DOCUSATE SODIUM 100 MG CAPSULE (FP) PO SCH ×3 (06:30→22:36)
[2019-07-24] MEDS: chlordiazePOXIDE HCL 25 MG CAPSULE PO SCH ×4 (06:30→22:36)
[2019-07-24] MEDS ORDERED: METHADONE HCL 10 MG TABLET (FOR DETOX USE ONLY) PO ONE (10:00)
[2019-07-24] MEDS: PRENATAL VITAMINS W/ FOLIC ACID TABLET (FP) PO SCH (10:17)
--- NOTE | 2019-07-24 12:04 | PN ---
[facility] CIWA - CIWA Score Nausea/Vomitin-Mild Nausea/No Vomiting Muscle Tremors: 4-Moderate,w/Arms Extend Anxiety: 3 Agitation: 1-Slight > Activity Paroxysmal Sweats: 2 Orientation: 0-Oriented Tacttile Disturbances: 0-None Auditory Disturbances: 0-None Visual Disturbances: 1-Very Mild Sensitivity Headache: 0-None Present CIWA-Ar Total Score: 12 S COWS - Scale Resting Pulse: 2= [place] 101-120 Sweatin= Chills/Flushing Restless Observation: 0= Sits Still Pupil Size: 1= Pupils >than Normal Bone or Joint Aches: 2= Severe Diffuse Aches Runny Nose/ Eye Tearin= None GI Upset > 30mins: 2= Nausea/Diarrhea Tremor Observation of Outstretched Hands: 2= Slight Tremor Visible Yawning Observation: 0= None Anxiety or Irritability: 1=Feels Anxious/Irritable Goose Flesh Skin: 0=Smooth Skin COWS Score: 11 S Progress Note (SOAP) Subjective: 44 years old male admitted on 07/21 benzo and opiate withdrawal sx management treating with librium and methadone detox regiments Mr Paris states that he was at [facility] methadone program x 7 years last visited two months ago was taking 110 mg of methadone daily negative opiate Utox upon admission additional librium 50 mg po x 1 around 2 pm Objective: 07/24/19 12:05 Vital Signs Temperature 96.6 F L 07/24/19 08:43 Pulse Rate 103 H 07/24/19 08:43 Respiratory Rate 20 07/24/19 08:43 Blood Pressure 130/85 07/24/19 08:43 O2 Sat by Pulse Oximetry (%) Laboratory Last Values WBC 4.4 K/mm3 (4.0-10.0) 07/23/19 07:30 RBC 4.17 M/mm3 (4.00-5.60) 07/23/19 07:30 Hgb 11.9 GM/dL (11.7-16.9) 07/23/19 07:30 Hct 35.7 % (35.4-49) 07/23/19 07:30 MCV 85.7 fl (80-96) 07/23/19 07:30 MCH 28.5 pg (25.7-33.7) 07/23/19 07:30 MCHC 33.2 g/dl (32.0-35.9) 07/23/19 07:30 RDW 14.7 % (11.9-15.9) 07/23/19 07:30 Plt Count 220 K/MM3 (134-434) 07/23/19 07:30 MPV 9.4 fl (7.5-11.1) 07/23/19 07:30 Sodium 136 mmol/L (136-145) 07/23/19 07:30 Potassium 4.1 mmol/L (3.5-5.1) 07/23/19 07:30 Chloride 101 mmol/L (98-107) 07/23/19 07:30 Carbon Dioxide 28 mmol/L (21-32) 07/23/19 07:30 Anion Gap 6 MMOL/L (8-16) L 07/23/19 07:30 BUN 13.1 mg/dL (7-18) 07/23/19 07:30 Creatinine 1.2 mg/dL (0.55-1.3) 07/23/19 07:30 Est GFR (CKD-EPI)AfAm 85.32 07/23/19 07:30 Est GFR (CKD-EPI)NonAf 73.62 07/23/19 07:30 Random Glucose 88 mg/dL (74-106) 07/23/19 07:30 Calcium 8.0 mg/dL (8.5-10.1) L 07/23/19 07:30 Total Bilirubin 0.5 mg/dL (0.2-1) 07/23/19 07:30 AST 18 U/L (15-37) 07/23/19 07:30 ALT 21 U/L (13-61) 07/23/19 07:30 Alkaline Phosphatase 75 U/L (45-117) 07/23/19 07:30 Total Protein 6.1 g/dl (6.4-8.2) L 07/23/19 07:30 Albumin 3.0 g/dl (3.4-5.0) L 07/23/19 07:30 RPR Titer Reactive 1:1 (NONREACTIVE) H 07/23/19 07:30 T.pallidum Ab (MHA) Previously reactive (NONREACTIVE) 07/23/19 07:30 lab noted Assessment: 07/24/19 12:06 benzo and opiate withdrawal Plan: librium and methadone regiments
[2019-07-24] MEDS ORDERED: chlordiazePOXIDE HCL 25 MG CAPSULE PO ONE (14:00)
[2019-07-24] MEDS: QUEtiapine FUMARATE 100 MG TABLET (FP) PO SCH (22:36)
[2019-07-24] MEDS: THIAMINE HCL 100 MG TABLET (FP) PO SCH (22:36)
[2019-07-24] MEDS: MELATONIN 5 MG TABLETS PO SCH (22:36)
[2019-07-25] MEDS ORDERED: chlordiazePOXIDE HCL 10 MG CAPSULE PO PRN
[2019-07-25] MEDS: chlordiazePOXIDE HCL 10 MG CAPSULE PO SCH ×4 (05:33→22:27)
[2019-07-25] MEDS: DOCUSATE SODIUM 100 MG CAPSULE (FP) PO SCH ×3 (05:34→22:28)
--- NOTE | 2019-07-25 09:52 | PN ---
S CIWA - CIWA Score Nausea/Vomitin-No Nausea/No Vomiting Muscle Tremors: 2 Anxiety: 2 Agitation: 0-Normal Activity Paroxysmal Sweats: 2 Orientation: 0-Oriented Tacttile Disturbances: 0-None Auditory Disturbances: 0-None Visual Disturbances: 2-Mild Sensitivity Headache: 0-None Present CIWA-Ar Total Score: 8 BHS COWS - Scale Resting Pulse: 1= [place] 81-100 Sweatin= No chills or Flushing Restless Observation: 0= Sits Still Pupil Size: 1= Pupils >than Normal Bone or Joint Aches: 0= None Runny Nose/ Eye Tearin= None GI Upset > 30mins: 1= Stomach Cramp Tremor Observation of Outstretched Hands: 2= Slight Tremor Visible Yawning Observation: 1= 1-2x During Session Anxiety or Irritability: 2=Irritable/Anxious Goose Flesh Skin: 0=Smooth Skin COWS Score: 8 S Progress Note (SOAP) Subjective: 44 years old male admitted on 07/22/19 for benzo and opiate withdrawal sx management treating with librium and methadone detox regiments less tremor prefers to return to methadone maintenance program at [facility] dependent [facility] Objective: 07/25/19 09:50 Vital Signs Temperature 99.3 F 07/25/19 07:50 Pulse Rate 86 07/25/19 07:50 Respiratory Rate 18 07/25/19 07:50 Blood Pressure 111/70 07/25/19 07:50 O2 Sat by Pulse Oximetry (%) Laboratory Last Values WBC 4.4 K/mm3 (4.0-10.0) 07/23/19 07:30 RBC 4.17 M/mm3 (4.00-5.60) 07/23/19 07:30 Hgb 11.9 GM/dL (11.7-16.9) 07/23/19 07:30 Hct 35.7 % (35.4-49) 07/23/19 07:30 MCV 85.7 fl (80-96) 07/23/19 07:30 MCH 28.5 pg (25.7-33.7) 07/23/19 07:30 MCHC 33.2 g/dl (32.0-35.9) 07/23/19 07:30 RDW 14.7 % (11.9-15.9) 07/23/19 07:30 Plt Count 220 K/MM3 (134-434) 07/23/19 07:30 MPV 9.4 fl (7.5-11.1) 07/23/19 07:30 Sodium 136 mmol/L (136-145) 07/23/19 07:30 Potassium 4.1 mmol/L (3.5-5.1) 07/23/19 07:30 Chloride 101 mmol/L (98-107) 07/23/19 07:30 Carbon Dioxide 28 mmol/L (21-32) 07/23/19 07:30 Anion Gap 6 MMOL/L (8-16) L 07/23/19 07:30 BUN 13.1 mg/dL (7-18) 07/23/19 07:30 Creatinine 1.2 mg/dL (0.55-1.3) 07/23/19 07:30 Est GFR (CKD-EPI)AfAm 85.32 07/23/19 07:30 Est GFR (CKD-EPI)NonAf 73.62 07/23/19 07:30 Random Glucose 88 mg/dL (74-106) 07/23/19 07:30 Calcium 8.0 mg/dL (8.5-10.1) L 07/23/19 07:30 Total Bilirubin 0.5 mg/dL (0.2-1) 07/23/19 07:30 AST 18 U/L (15-37) 07/23/19 07:30 ALT 21 U/L (13-61) 07/23/19 07:30 Alkaline Phosphatase 75 U/L (45-117) 07/23/19 07:30 Total Protein 6.1 g/dl (6.4-8.2) L 07/23/19 07:30 Albumin 3.0 g/dl (3.4-5.0) L 07/23/19 07:30 RPR Titer Reactive 1:1 (NONREACTIVE) H 07/23/19 07:30 T.pallidum Ab (MHA) Previously reactive (NONREACTIVE) 07/23/19 07:30 lab noted Assessment: 07/25/19 09:50 benzo and opiate withdrawal Plan: librium and methadone regiments
[2019-07-25] MEDS ORDERED: METHADONE HCL 10 MG TABLET (FOR DETOX USE ONLY) PO ONE (10:00)
[2019-07-25] MEDS: PRENATAL VITAMINS W/ FOLIC ACID TABLET (FP) PO SCH (10:32)
[2019-07-25] MEDS: IBUPROFEN 600 MG TABLET (FP) PO PRN (20:15)
[2019-07-25] MEDS ORDERED: TRIMETHOBENZAMIDE HCL 200MG/2ML INJ IM ONE (20:49)
[2019-07-25] MEDS ORDERED: METHOCARBAMOL 500 MG TABLET PO ONE (20:49)
--- NOTE | 2019-07-25 20:54 | PN ---
S Progress Note Note: pt w/ c/o nausea and bodyaches , no prn meds Vital Signs - 24 hr 07/25/19 07/25/19 07/25/19 00:20 06:24 07:50 Temperature 99.3 F Pulse Rate 86 Respiratory 18 16 18 Rate Blood Pressure 111/70 07/25/19 07/25/19 07/25/19 08:55 12:50 16:32 Temperature 99.1 F 99.7 F H 99.5 F Pulse Rate 80 99 H 100 H Respiratory 16 20 20 Rate Blood Pressure 116/67 136/89 129/91 CBC, BMP 07/23/19 07:30 07/23/19 07:30 P : add Tigan x once , Methocarbamol x once
[2019-07-25] MEDS: THIAMINE HCL 100 MG TABLET (FP) PO SCH (22:28)
[2019-07-25] MEDS: MELATONIN 5 MG TABLETS PO SCH (22:28)
[2019-07-25] MEDS: QUEtiapine FUMARATE 100 MG TABLET (FP) PO SCH (22:28)
[2019-07-26] MEDS ORDERED: chlordiazePOXIDE HCL 10 MG CAPSULE PO SCH (05:00)
[2019-07-26] MEDS: chlordiazePOXIDE HCL 10 MG CAPSULE PO SCH ×2 (06:42→13:06)
[2019-07-26] MEDS: DOCUSATE SODIUM 100 MG CAPSULE (FP) PO SCH ×3 (06:42→22:25)
[2019-07-26] MEDS ORDERED: METHADONE HCL 5 MG TABLET (FOR DETOX USE ONLY) PO ONE (10:00)
[2019-07-26] MEDS ORDERED: MELATONIN 5 MG TABLETS PO SCH (10:10)
--- NOTE | 2019-07-26 10:10 | PN ---
[facility] CIWA - CIWA Score Nausea/Vomitin-No Nausea/No Vomiting Muscle Tremors: 2 Anxiety: 0-No Anxiety, at Ease Agitation: 0-Normal Activity Paroxysmal Sweats: No Perspiration Orientation: 0-Oriented Tacttile Disturbances: 0-None Auditory Disturbances: 0-None Visual Disturbances: 0-None Headache: 0-None Present CIWA-Ar Total Score: 2 S COWS - Scale Resting Pulse: 0= NE 80 or Below Sweatin= No chills or Flushing Restless Observation: 0= Sits Still Pupil Size: 0= Normal to Room Light Bone or Joint Aches: 1= Mild Discomfort Runny Nose/ Eye Tearin= None GI Upset > 30mins: 0= None Tremor Observation of Outstretched Hands: 1= Tremor [place], Not Seen Yawning Observation: 0= None Anxiety or Irritability: 0= None Goose Flesh Skin: 0=Smooth Skin COWS Score: 2 S Progress Note (SOAP) Subjective: Asking for a change in sleep med Objective: 07/26/19 10:07 Laboratory Tests 07/23/19 07/23/19 07/23/19 07:30 07:30 07:30 WBC 4.4 RBC 4.17 Hgb 11.9 Hct 35.7 MCV 85.7 MCH 28.5 MCHC 33.2 RDW 14.7 Plt Count 220 MPV 9.4 Sodium 136 Potassium 4.1 Chloride 101 Carbon Dioxide 28 Anion Gap 6 L BUN 13.1 Creatinine 1.2 Est GFR (CKD-EPI)AfAm 85.32 Est GFR (CKD-EPI)NonAf 73.62 Random Glucose 88 Calcium 8.0 L Total Bilirubin 0.5 AST 18 ALT 21 Alkaline Phosphatase 75 Total Protein 6.1 L Albumin 3.0 L RPR Titer Reactive 1:1 H T.pallidum Ab (MHA) Previously reactive Vital Signs - 24 hr 07/25/19 07/25/19 07/25/19 12:50 16:32 21:05 Temperature 99.7 F H 99.5 F 98.5 F Pulse Rate 99 H 100 H 82 Respiratory 20 20 19 Rate Blood Pressure 136/89 129/91 131/85 07/26/19 07/26/19 07/26/19 00:34 03:29 06:16 Temperature 96.7 F L Pulse Rate 73 Respiratory 20 18 18 Rate Blood Pressure 104/61 07/26/19 09:04 Temperature 96.1 F L Pulse Rate 81 Respiratory 16 Rate Blood Pressure 130/83 PE Gnl: WDWN, in no distress Mental status: awake, alert, nl language function Motor: nl Assessment: 07/26/19 10:08 1. Benzodiazepine use disorder 2. Opioid use disorder 3. Insomnia Plan: 1. continue librium withdrawal protocol for benzodiazapine use 2. on methadone withdrawal protocol, would like to go to methadone maintenence program upon discharge 3. will change sleep medication
[2019-07-26] MEDS: PRENATAL VITAMINS W/ FOLIC ACID TABLET (FP) PO SCH (10:12)
[2019-07-26] MEDS ORDERED: hydrOXYzine PAMOATE 50 MG CAPSULE (FP) PO PRN (18:26)
--- NOTE | 2019-07-26 18:30 | PN ---
[facility] Progress Note Note: Patient w/ a hx opioid, alcohol, MDMA, and GHB use disorder. C/o increased anxiety. Assess: Alert. Steady gait. + gross tremors hands. EKG reviewed and QTc wnl Vital Signs 07/26/19 07/26/19 13:04 17:07 Temperature 98.5 F 98.9 F Pulse Rate 87 93 H Respiratory 17 16 Rate Blood Pressure 138/96 140/93 Plan: Vistaril 50 mg PO q4h prn
[2019-07-26] MEDS: IBUPROFEN 600 MG TABLET (FP) PO PRN (19:08)
[2019-07-26] MEDS: THIAMINE HCL 100 MG TABLET (FP) PO SCH (22:24)
[2019-07-26] MEDS: QUEtiapine FUMARATE 100 MG TABLET (FP) PO SCH (22:25)
[2019-07-27] MEDS ORDERED: chlordiazePOXIDE HCL 10 MG CAPSULE PO ONE (05:00)
[2019-07-27 06:25] VITALS: PULSE 78
[2019-07-27] MEDS: DOCUSATE SODIUM 100 MG CAPSULE (FP) PO SCH (06:38)
[2019-07-27 09:22] VITALS: BP 124/71; TEMP 98.3
[2019-07-27] MEDS: PRENATAL VITAMINS W/ FOLIC ACID TABLET (FP) PO SCH (10:36)
--- NOTE | 2019-07-27 14:06 | DS ---
[facility] Detox Discharge Summary Admission Date: 07/22/19 Discharge Date: 07/27/19 - History Present History: Alcohol Dependence, Cannabis Dependence, Opioid Dependence Additional Comments: Pt is medically cleared and discharged today. Pt completed the detox protocol. Pt is encouraged to follow-up with an outpatient CD program and also to follow- up with his pmd. Pt verbalized understanding of the information given. Pt is alert and oriented x3 and in no acute respiratory distress. Pertinent Past History: h/o alcohol, cannabis, and heroin use disorder. - Physical Exam Results Vital Signs: Vital Signs Temperature 98.3 F 07/27/19 09:19 Pulse Rate 78 07/27/19 09:19 Respiratory Rate 18 07/27/19 09:19 Blood Pressure 124/71 07/27/19 09:19 O2 Sat by Pulse Oximetry (%) Vital Signs 07/27/19 07/27/19 07/27/19 06:23 06:30 09:19 Temperature 97.2 F L 98.3 F Pulse Rate 78 78 Respiratory 18 18 18 Rate Blood Pressure 111/68 124/71 Laboratory Last Values WBC 4.4 K/mm3 (4.0-10.0) 07/23/19 07:30 RBC 4.17 M/mm3 (4.00-5.60) 07/23/19 07:30 Hgb 11.9 GM/dL (11.7-16.9) 07/23/19 07:30 Hct 35.7 % (35.4-49) 07/23/19 07:30 MCV 85.7 fl (80-96) 07/23/19 07:30 MCH 28.5 pg (25.7-33.7) 07/23/19 07:30 MCHC 33.2 g/dl (32.0-35.9) 07/23/19 07:30 RDW 14.7 % (11.9-15.9) 07/23/19 07:30 Plt Count 220 K/MM3 (134-434) 07/23/19 07:30 MPV 9.4 fl (7.5-11.1) 07/23/19 07:30 Sodium 136 mmol/L (136-145) 07/23/19 07:30 Potassium 4.1 mmol/L (3.5-5.1) 07/23/19 07:30 Chloride 101 mmol/L (98-107) 07/23/19 07:30 Carbon Dioxide 28 mmol/L (21-32) 07/23/19 07:30 Anion Gap 6 MMOL/L (8-16) L 07/23/19 07:30 BUN 13.1 mg/dL (7-18) 07/23/19 07:30 Creatinine 1.2 mg/dL (0.55-1.3) 07/23/19 07:30 Est GFR (CKD-EPI)AfAm 85.32 07/23/19 07:30 Est GFR (CKD-EPI)NonAf 73.62 07/23/19 07:30 Random Glucose 88 mg/dL (74-106) 07/23/19 07:30 Calcium 8.0 mg/dL (8.5-10.1) L 07/23/19 07:30 Total Bilirubin 0.5 mg/dL (0.2-1) 07/23/19 07:30 AST 18 U/L (15-37) 07/23/19 07:30 ALT 21 U/L (13-61) 07/23/19 07:30 Alkaline Phosphatase 75 U/L (45-117) 07/23/19 07:30 Total Protein 6.1 g/dl (6.4-8.2) L 07/23/19 07:30 Albumin 3.0 g/dl (3.4-5.0) L 07/23/19 07:30 RPR Titer Reactive 1:1 (NONREACTIVE) H 07/23/19 07:30 T.pallidum Ab (MHA) Previously reactive (NONREACTIVE) 07/23/19 07:30 Labs noted. Pertinent Admission Physical Exam Findings: withdrawal symptoms. - Treatment Hospital Course: Detox Protocol Followed, Detoxed Safely, Responded well, Discharged Condition Good - Medication Discharge Medications: Ambulatory Orders NK [No Known Home Medication] 07/22/19 - Diagnosis (1) Alcohol dependence with uncomplicated withdrawal Status: Acute (2) Cocaine dependence Status: Chronic (3) Heroin abuse Status: Chronic (4) Benzodiazepine dependence Status: Chronic (5) GERD (gastroesophageal reflux disease) Status: Chronic Qualifiers: Esophagitis presence: without esophagitis Qualified Code(s): K21.9 - Gastro-esophageal reflux disease without esophagitis (6) Hx of Lyme disease Status: Chronic (7) MDMA abuse Status: Chronic (8) 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
== END 2019-07-27 12:27 | disposition home or self-care (01) | DRG 773 ==
LOC: YASAS 20:40 → Y3N 22:37
PROVIDERS: ADMIT Allergy & Immunology; ATTEND Allergy & Immunology
PROC: HZ2ZZZZ Detoxification Services for Substance Abuse Treatment (ICD-10-PCS; principal; 2019-07-22)
DX: F10.230 Alcohol dependence with withdrawal, uncomplicated (principal); F11.23 Opioid dependence with withdrawal; F13.230 Sedative, hypnotic or anxiolytic dependence with withdrawal, uncomplicated; F14.20 Cocaine dependence, uncomplicated; F12.20 Cannabis dependence, uncomplicated; F15.20 Other stimulant dependence, uncomplicated; F90.9 Attention-deficit hyperactivity disorder, unspecified type; F19.24 Other psychoactive substance dependence with psychoactive substance-induced mood disorder; K21.9 Gastro-esophageal reflux disease without esophagitis; G47.00 Insomnia, unspecified; R00.0 Tachycardia, unspecified; B37.0 Candidal stomatitis; R03.0 Elevated blood-pressure reading, without diagnosis of hypertension; Z86.69 Personal history of other diseases of the nervous system and sense organs; Z86.19 Personal history of other infectious and parasitic diseases; Z56.0 Unemployment, unspecified; Z59.0 Homelessness
CPT/HCPCS: 36415; 80053; 85027; 86593; 86780; 93005; 93010; J0735; Q0162

== ENCOUNTER 2021-02-07 21:15 | Inpatient (IN) | payer OTHER ==
[2021-02-07 21:51] VITALS: BMI 27.1
[2021-02-07] MEDS ORDERED: MAG HYDROX/AL HYDROX/SIMETH 30 ML UNIT-DOSE CUP PO PRN (23:06)
[2021-02-07] MEDS ORDERED: MAGNESIUM HYDROX 2400MG/30ML ORAL SUSPENSION 30 ML CUP PO PRN (23:06)
[2021-02-07] MEDS ORDERED: MAGNESIUM CITRATE 300 ML BOTTLE PO PRN (23:06)
[2021-02-07] MEDS ORDERED: BISMUTH SUBSALICYLATE 524 MG/30 ML PO PRN (23:06)
[2021-02-07] MEDS ORDERED: MENTHOL/PHENOL 1 EACH UD MM PRN (23:06)
[2021-02-07] MEDS ORDERED: ACETAMINOPHEN 325 MG TABLET (FP) PO PRN ×2 (23:06)
[2021-02-07] MEDS ORDERED: ONDANSETRON *ODT* 4 MG TABLET SL PRN (23:06)
[2021-02-07] MEDS ORDERED: methaDONE HCL 10 MG TABLET (FOR DETOX USE ONLY) PO ONE (23:09)
[2021-02-07] MEDS: diazePAM 5 MG TABLET PO SCH (23:46)
[2021-02-08] MEDS: IBUPROFEN 400 MG TABLET (FP) PO PRN ×2 (01:04→22:58)
[2021-02-08] MEDS: METHOCARBAMOL 500 MG TABLET PO PRN ×2 (01:05→09:44)
[2021-02-08] MEDS: cloNIDine HCL 0.1 MG TABLET PO PRN ×2 (01:20→17:00)
[2021-02-08] MEDS: diazePAM 5 MG TABLET PO PRN ×2 (02:11→08:44)
[2021-02-08] MEDS: diazePAM 5 MG TABLET PO SCH ×4 (05:32→22:55)
[2021-02-08] MEDS ORDERED: methaDONE HCL 10 MG TABLET (FOR DETOX USE ONLY) ONE (09:34)
[2021-02-08] MEDS: PRENATAL VITAMINS W/ FOLIC ACID TABLET (FP) PO SCH (09:44)
[2021-02-08 11:37] LABS: HEMATOCRIT 34.4 % (35.4-49); HEMOGLOBIN 11.8 GM/dL (11.7-16.9); MCH 29.5 pg (25.7-33.7); MCHC 34.4 g/dl (32.0-35.9); MEAN CELL VOLUME 85.8 fl (80-96); MEAN PLT VOLUME 9.2 fl (7.5-11.1); PLATELET COUNT 201 10^3/uL (134-434); RBC 4.01 M/mm3 (4.00-5.60); RDW 15.7 % (11.9-15.9); WHITE BLOOD COUNT 4.1 K/mm3 (4.0-10.0)
[2021-02-08 11:51] LABS: ALBUMIN 3.1 g/dl (3.4-5.0); BLOOD UREA NITROGEN 15.4 mg/dL (7-18)
[2021-02-08 11:54] LABS: CREATININE 1.1 mg/dL (0.55-1.3)
[2021-02-08 11:56] LABS: BILIRUBIN,TOTAL 0.6 mg/dL (0.2-1); TOT PROT 6.8 g/dl (6.4-8.2)
[2021-02-08 14:00] LABS: HIV INTERPRETATION NEGATIVE (NEGATIVE)
[2021-02-08] MEDS ORDERED: GABAPENTIN 300 MG CAPSULE PO SCH (14:00)
[2021-02-08] MEDS: GABAPENTIN 300 MG CAPSULE PO SCH ×2 (14:44→22:54)
[2021-02-08] MEDS ORDERED: MELATONIN 5 MG TABLETS PO SCH (22:00)
[2021-02-08] MEDS: QUEtiapine FUMARATE 100 MG TABLET (FP) PO SCH (22:54)
[2021-02-08] MEDS: THIAMINE HCL 100 MG TABLET (FP) PO SCH (22:54)
[2021-02-09] MEDS ORDERED: diazePAM 5 MG TABLET PO SCH (06:00)
[2021-02-09] MEDS: diazePAM 5 MG TABLET PO SCH ×3 (06:27→22:34)
[2021-02-09] MEDS: GABAPENTIN 300 MG CAPSULE PO SCH ×3 (06:27→22:34)
[2021-02-09] MEDS ORDERED: methaDONE HCL 10 MG TABLET (FOR DETOX USE ONLY) PO ONE (10:00)
[2021-02-09] MEDS: PRENATAL VITAMINS W/ FOLIC ACID TABLET (FP) PO SCH (10:59)
[2021-02-09] MEDS: diazePAM 5 MG TABLET PO PRN (11:11)
[2021-02-09] MEDS: QUEtiapine FUMARATE 100 MG TABLET (FP) PO SCH (22:34)
[2021-02-09] MEDS: THIAMINE HCL 100 MG TABLET (FP) PO SCH (22:34)
[2021-02-10] MEDS: GABAPENTIN 300 MG CAPSULE PO SCH ×3 (05:36→22:14)
[2021-02-10] MEDS ORDERED: diazePAM 5 MG TABLET PO SCH (06:00)
[2021-02-10] MEDS ORDERED: methaDONE HCL 10 MG TABLET (FOR DETOX USE ONLY) ONE (09:28)
[2021-02-10] MEDS: PRENATAL VITAMINS W/ FOLIC ACID TABLET (FP) PO SCH (10:57)
[2021-02-10] MEDS: diazePAM 5 MG TABLET PO SCH ×2 (10:58→22:14)
[2021-02-10] MEDS: diazePAM 5 MG TABLET PO PRN ×2 (12:42→20:51)
[2021-02-10] MEDS: METHOCARBAMOL 500 MG TABLET PO PRN (18:12)
[2021-02-10] MEDS: QUEtiapine FUMARATE 100 MG TABLET (FP) PO SCH (22:13)
[2021-02-10] MEDS: cloNIDine HCL 0.1 MG TABLET PO PRN (22:14)
[2021-02-10] MEDS: THIAMINE HCL 100 MG TABLET (FP) PO SCH (22:16)
[2021-02-11] MEDS: GABAPENTIN 300 MG CAPSULE PO SCH ×3 (05:14→22:02)
[2021-02-11] MEDS: cloNIDine HCL 0.1 MG TABLET PO PRN (05:14)
[2021-02-11] MEDS ORDERED: diazePAM 5 MG TABLET PO ONE (06:00)
[2021-02-11] MEDS ORDERED: methaDONE HCL 10 MG TABLET (FOR DETOX USE ONLY) PO ONE (10:00)
[2021-02-11] MEDS: PRENATAL VITAMINS W/ FOLIC ACID TABLET (FP) PO SCH (10:38)
[2021-02-11] MEDS: diazePAM 5 MG TABLET PO SCH ×2 (10:39→22:03)
[2021-02-11] MEDS ORDERED: PENICILLIN G BENZATHINE 2,400,000 UNIT/4 ML PFS IM ONE (11:30)
[2021-02-11] MEDS: METHOCARBAMOL 500 MG TABLET PO PRN (16:38)
[2021-02-11] MEDS: QUEtiapine FUMARATE 100 MG TABLET (FP) PO SCH (22:02)
[2021-02-11] MEDS: THIAMINE HCL 100 MG TABLET (FP) PO SCH (22:44)
[2021-02-12] MEDS: GABAPENTIN 300 MG CAPSULE PO SCH (05:30)
[2021-02-12] MEDS ORDERED: diazePAM 5 MG TABLET PO ONE (06:00)
[2021-02-12 12:52] VITALS: BP 148/82; PULSE 77; TEMP 97.9
== END 2021-02-12 13:20 | disposition other institution (70) | DRG 773 ==
LOC: YASAS 21:15 → Y6N 21:51
PROVIDERS: ADMIT Allergy & Immunology; ATTEND Allergy & Immunology
PROC: HZ2ZZZZ Detoxification Services for Substance Abuse Treatment (ICD-10-PCS; principal; 2021-02-07)
DX: F11.23 Opioid dependence with withdrawal (principal); F10.230 Alcohol dependence with withdrawal, uncomplicated; F13.20 Sedative, hypnotic or anxiolytic dependence, uncomplicated; F16.10 Hallucinogen abuse, uncomplicated; F19.280 Other psychoactive substance dependence with psychoactive substance-induced anxiety disorder; F41.9 Anxiety disorder, unspecified; F32.9 Major depressive disorder, single episode, unspecified; F43.10 Post-traumatic stress disorder, unspecified; F90.0 Attention-deficit hyperactivity disorder, predominantly inattentive type; E78.5 Hyperlipidemia, unspecified; E11.9 Type 2 diabetes mellitus without complications; I10 Essential (primary) hypertension; K21.9 Gastro-esophageal reflux disease without esophagitis; Z87.19 Personal history of other diseases of the digestive system; Z86.19 Personal history of other infectious and parasitic diseases; Z86.69 Personal history of other diseases of the nervous system and sense organs
CPT/HCPCS: 36415; 80053; 85027; 86593; 86780; 87389; 93005; 93010; C9803; J0735; U0003; U0005

== ENCOUNTER 2021-02-12 13:44 | Inpatient (IN) | payer OTHER ==
[2021-02-12] MEDS ORDERED: guaiFENesin 200 MG/10 ML 10 ML UNIT-DOSE CUPS PO PRN (14:51)
[2021-02-12] MEDS ORDERED: MAGNESIUM CITRATE 300 ML BOTTLE PO PRN (14:51)
[2021-02-12] MEDS ORDERED: MENTHOL/PHENOL 1 EACH UD MM PRN (14:51)
[2021-02-12] MEDS ORDERED: MAG HYDROX/AL HYDROX/SIMETH 30 ML UNIT-DOSE CUP PO PRN (14:51)
[2021-02-12] MEDS ORDERED: ACETAMINOPHEN 325 MG TABLET (FP) PO PRN (14:51)
[2021-02-12] MEDS ORDERED: IBUPROFEN 400 MG TABLET (FP) PO PRN (14:51)
[2021-02-12] MEDS ORDERED: MAGNESIUM HYDROX 2400MG/30ML ORAL SUSPENSION 30 ML CUP PO PRN (14:51)
[2021-02-12] MEDS ORDERED: LOPERAMIDE HCL 2 MG CAPSULE PO PRN (14:51)
[2021-02-12] MEDS ORDERED: P-EPHED 60MG/TRIPROLIDI 2.5MG TABLET PO PRN (14:51)
[2021-02-12] MEDS: hydrOXYzine PAMOATE 25 MG CAPSULE (FP) PO PRN ×2 (18:10→21:57)
[2021-02-12] MEDS: GABAPENTIN 300 MG CAPSULE PO SCH (21:55)
[2021-02-12] MEDS ORDERED: MELATONIN 5 MG TABLETS PO SCH (22:00)
[2021-02-12] MEDS ORDERED: THIAMINE HCL 100 MG TABLET (FP) PO SCH (22:00)
[2021-02-12] MEDS ORDERED: GABAPENTIN 300 MG CAPSULE PO SCH (22:00)
[2021-02-12] MEDS ORDERED: QUEtiapine FUMARATE 100 MG TABLET (FP) PO SCH (22:00)
[2021-02-13] MEDS: GABAPENTIN 300 MG CAPSULE PO SCH ×2 (06:51→13:58)
[2021-02-13 07:17] VITALS: BP 146/105; PULSE 87; TEMP 96.3
[2021-02-13] MEDS: hydrOXYzine PAMOATE 25 MG CAPSULE (FP) PO PRN ×2 (09:28→13:58)
[2021-02-13] MEDS ORDERED: PRENATAL VITAMINS W/ FOLIC ACID TABLET (FP) PO SCH (10:00)
== END 2021-02-13 16:00 | disposition home or self-care (01) | DRG 772 ==
LOC: YASAS 13:44 → Y3W 13:46
PROVIDERS: ADMIT Allergy & Immunology; ATTEND Allergy & Immunology
PROC: HZ42ZZZ Group Counseling for Substance Abuse Treatment, Cognitive-Behavioral (ICD-10-PCS; principal; 2021-02-12)
DX: F11.20 Opioid dependence, uncomplicated (principal); F10.20 Alcohol dependence, uncomplicated; F13.20 Sedative, hypnotic or anxiolytic dependence, uncomplicated; F17.210 Nicotine dependence, cigarettes, uncomplicated; I10 Essential (primary) hypertension; E78.5 Hyperlipidemia, unspecified

== ENCOUNTER 2021-03-25 11:33 | Inpatient (IN) | payer OTHER ==
[2021-03-25] MEDS ORDERED: ACETAMINOPHEN 325 MG TABLET (FP) PO PRN ×2 (12:15)
[2021-03-25] MEDS ORDERED: MAG HYDROX/AL HYDROX/SIMETH 30 ML UNIT-DOSE CUP PO PRN (12:15)
[2021-03-25] MEDS ORDERED: methaDONE HCL 10 MG TABLET (FOR DETOX USE ONLY) PO ONE (12:15)
[2021-03-25] MEDS ORDERED: MAGNESIUM HYDROX 2400MG/30ML ORAL SUSPENSION 30 ML CUP PO PRN (12:15)
[2021-03-25] MEDS ORDERED: MAGNESIUM CITRATE 300 ML BOTTLE PO PRN (12:15)
[2021-03-25] MEDS ORDERED: ONDANSETRON *ODT* 4 MG TABLET SL PRN (12:15)
[2021-03-25] MEDS ORDERED: MENTHOL/PHENOL 1 EACH UD MM PRN (12:15)
[2021-03-25] MEDS ORDERED: IBUPROFEN 400 MG TABLET (FP) PO PRN (12:15)
[2021-03-25] MEDS ORDERED: cloNIDine HCL 0.1 MG TABLET PO PRN (12:15)
[2021-03-25] MEDS ORDERED: BISMUTH SUBSALICYLATE 524 MG/30 ML PO PRN (12:15)
[2021-03-25] MEDS: diazePAM 5 MG TABLET PO PRN ×3 (13:21→22:12)
[2021-03-25 13:29] VITALS: BMI 27.6
[2021-03-25] MEDS: hydrOXYzine PAMOATE 25 MG CAPSULE (FP) PO SCH ×3 (14:35→22:11)
[2021-03-25] MEDS: METHOCARBAMOL 500 MG TABLET PO PRN ×2 (14:35→20:23)
[2021-03-25] MEDS: diazePAM 5 MG TABLET PO SCH ×2 (15:04→17:05)
[2021-03-25] MEDS: PRENATAL VITAMINS W/ FOLIC ACID TABLET (FP) PO SCH (17:05)
[2021-03-25 17:36] LABS: HEMOGLOBIN 14.5 GM/dL (11.7-16.9); MCH 29.1 pg (25.7-33.7); MCHC 34.5 g/dl (32.0-35.9); MEAN CELL VOLUME 84.2 fl (80-96); MEAN PLT VOLUME 8.8 fl (7.5-11.1); PLATELET COUNT 232 10^3/uL (134-434); RBC 4.99 M/mm3 (4.00-5.60); WHITE BLOOD COUNT 3.8 K/mm3 (4.0-10.0)
[2021-03-25 17:43] LABS: ALBUMIN 3.9 g/dl (3.4-5.0); BLOOD UREA NITROGEN 16.4 mg/dL (7-18); CALCIUM 9.1 mg/dL (8.5-10.1)
[2021-03-25 17:46] LABS: CREATININE 1.3 mg/dL (0.55-1.3)
[2021-03-25 17:48] LABS: BILIRUBIN,TOTAL 0.5 mg/dL (0.2-1)
[2021-03-25] MEDS: cloNIDine HCL 0.1 MG TABLET PO PRN (22:11)
[2021-03-25] MEDS: THIAMINE HCL 100 MG TABLET (FP) PO SCH (22:11)
[2021-03-25] MEDS: MELATONIN 5 MG TABLETS PO SCH (22:12)
[2021-03-26] MEDS: cloNIDine HCL 0.1 MG TABLET PO PRN (02:13)
[2021-03-26] MEDS: diazePAM 5 MG TABLET PO PRN ×3 (02:13→20:09)
[2021-03-26] MEDS: METHOCARBAMOL 500 MG TABLET PO PRN ×2 (03:58→13:06)
[2021-03-26] MEDS: diazePAM 5 MG TABLET PO SCH ×5 (06:13→23:24)
[2021-03-26] MEDS: hydrOXYzine PAMOATE 25 MG CAPSULE (FP) PO SCH ×5 (06:14→23:23)
[2021-03-26] MEDS ORDERED: methaDONE HCL 10 MG TABLET (FOR DETOX USE ONLY) ONE (09:23)
[2021-03-26] MEDS: PRENATAL VITAMINS W/ FOLIC ACID TABLET (FP) PO SCH (10:13)
[2021-03-26] MEDS: MELATONIN 5 MG TABLETS PO SCH (23:23)
[2021-03-26] MEDS: THIAMINE HCL 100 MG TABLET (FP) PO SCH (23:23)
[2021-03-27] MEDS: diazePAM 5 MG TABLET PO PRN ×2 (01:03→17:53)
[2021-03-27] MEDS: METHOCARBAMOL 500 MG TABLET PO PRN ×2 (01:04→10:13)
[2021-03-27] MEDS: hydrOXYzine PAMOATE 25 MG CAPSULE (FP) PO SCH ×5 (06:37→22:12)
[2021-03-27] MEDS: diazePAM 5 MG TABLET PO SCH ×3 (06:37→22:13)
[2021-03-27] MEDS ORDERED: methaDONE HCL 10 MG TABLET (FOR DETOX USE ONLY) PO ONE (10:00)
[2021-03-27] MEDS: PRENATAL VITAMINS W/ FOLIC ACID TABLET (FP) PO SCH (10:12)
[2021-03-27] MEDS: THIAMINE HCL 100 MG TABLET (FP) PO SCH (22:13)
[2021-03-27] MEDS: MELATONIN 5 MG TABLETS PO SCH (22:13)
[2021-03-28] MEDS: diazePAM 5 MG TABLET PO PRN (01:29)
[2021-03-28] MEDS: METHOCARBAMOL 500 MG TABLET PO PRN ×4 (01:29→22:30)
[2021-03-28] MEDS: diazePAM 5 MG TABLET PO SCH ×2 (05:59→17:26)
[2021-03-28] MEDS: hydrOXYzine PAMOATE 25 MG CAPSULE (FP) PO SCH ×5 (05:59→22:29)
[2021-03-28] MEDS ORDERED: methaDONE HCL 10 MG TABLET (FOR DETOX USE ONLY) ONE (09:16)
[2021-03-28] MEDS: PRENATAL VITAMINS W/ FOLIC ACID TABLET (FP) PO SCH (10:12)
[2021-03-28] MEDS: THIAMINE HCL 100 MG TABLET (FP) PO SCH (22:29)
[2021-03-28] MEDS: MELATONIN 5 MG TABLETS PO SCH (22:29)
[2021-03-29] MEDS ORDERED: diazePAM 5 MG TABLET PO ONE (06:00)
[2021-03-29] MEDS: hydrOXYzine PAMOATE 25 MG CAPSULE (FP) PO SCH ×6 (06:18→23:16)
[2021-03-29] MEDS: PRENATAL VITAMINS W/ FOLIC ACID TABLET (FP) PO SCH (09:48)
[2021-03-29] MEDS ORDERED: methaDONE HCL 10 MG TABLET (FOR DETOX USE ONLY) PO ONE (10:00)
[2021-03-29] MEDS: METHOCARBAMOL 500 MG TABLET PO PRN (20:03)
[2021-03-29] MEDS ORDERED: QUEtiapine FUMARATE 100 MG TABLET (FP) PO SCH (22:00)
[2021-03-29] MEDS: THIAMINE HCL 100 MG TABLET (FP) PO SCH (23:03)
[2021-03-29] MEDS: MELATONIN 5 MG TABLETS PO SCH (23:03)
[2021-03-30] MEDS: hydrOXYzine PAMOATE 25 MG CAPSULE (FP) PO SCH ×2 (06:42→11:21)
[2021-03-30 09:24] VITALS: BP 117/70; PULSE 75; TEMP 96.9
[2021-03-30] MEDS: PRENATAL VITAMINS W/ FOLIC ACID TABLET (FP) PO SCH (11:21)
== END 2021-03-30 11:50 | disposition home or self-care (01) | DRG 773 ==
LOC: YASAS 11:33 → Y3N 13:24
PROVIDERS: ADMIT Allergy & Immunology; ATTEND Allergy & Immunology
PROC: HZ2ZZZZ Detoxification Services for Substance Abuse Treatment (ICD-10-PCS; principal; 2021-03-25)
DX: F11.23 Opioid dependence with withdrawal (principal); F10.230 Alcohol dependence with withdrawal, uncomplicated; F13.20 Sedative, hypnotic or anxiolytic dependence, uncomplicated; F19.24 Other psychoactive substance dependence with psychoactive substance-induced mood disorder; F43.10 Post-traumatic stress disorder, unspecified; F32.9 Major depressive disorder, single episode, unspecified; F90.9 Attention-deficit hyperactivity disorder, unspecified type; I10 Essential (primary) hypertension; K21.9 Gastro-esophageal reflux disease without esophagitis; R73.9 Hyperglycemia, unspecified; Z87.891 Personal history of nicotine dependence; Z86.19 Personal history of other infectious and parasitic diseases; Z87.442 Personal history of urinary calculi; Z87.19 Personal history of other diseases of the digestive system; Z91.14 Patient's other noncompliance with medication regimen; Z56.0 Unemployment, unspecified; Z59.00 Homelessness unspecified
CPT/HCPCS: 36415; 80053; 85027; 86593; 86780; C9803; J0735; U0003; U0005